=== PATIENT | male | born 2000 | race Asian ===

== ENCOUNTER → 2020-04-27 | Outpatient (CLI) | payer SELFPAY | LOC: M LABCAHC 10:05 | PROVIDERS: ATTEND Pediatrics | DX: Z11.59 Encounter for screening for other viral diseases (principal) ==

== ENCOUNTER 2021-03-08 10:02 | Emergency (ER) | payer OTHER ==
[~2021-03-08] VITALS: Ht 180.3 cm; Wt 71.8 kg
[2021-03-08 13:42] VITALS: BP 105/62
== END 2021-03-08 13:47 | disposition home or self-care (01) ==
LOC: M ED 10:02
DX: R06.02 Shortness of breath (principal); Z86.16 Personal history of COVID-19
CPT/HCPCS: 99283; U0002